=== PATIENT | male | born 1965 | race Two or more races ===

== ENCOUNTER → 2024-08-24 | Outpatient (CLI) | payer OTHER, SELFPAY ==
[2024-08-24 09:04] LABS: Alanine Aminotransferase 38 U/L (10-49); Albumin, Serum 4.8 gm/dL (3.5-5.0); Albumin/Globulin Ratio 1.8 (1.2-2.2); Alkaline Phosphatase 61 U/L (46-116); Anion Gap 6 (7-16); Aspartate Amino Transferase 27 U/L (0-34); BUN/Creatinine Ratio 19 Ratio (12-20); Bilirubin,Total 0.6 mg/dL (0.3-1.2); Blood Urea Nitrogen 15 mg/dL (9-23); Calcium 10.1 mg/dL (8.3-10.6); Calcium (Corrected) 10.1 mg/dL (8.5-10.1); Carbon Dioxide 29.5 mMol/L (20.0-31.0); Cardiac Risk Estimate 4.5 RATIO (4.0-6.7); Chloride 102 mMol/L (98-107); Cholesterol 188 mg/dL (132-200); Creatinine (Component) 0.8 mg/dL (0.6-1.3); Globulin 2.6 gm/dL (2.3-3.5); Glucose 116 mg/dL (74-106); HDL Cholesterol 42 mg/dL (40-60); LDL Cholesterol,Calculated 121 mg/dL (0-130); Osmolality,Calculated 275 (275-295); Potassium 4.1 mMol/L (3.4-5.1); Sodium 137 mMol/L (136-145); Total Protein 7.4 gm/dL (5.7-8.2); Triglycerides 125 mg/dL (30-150); Uric Acid 7.9 mg/dL (3.7-9.2); eGFR > 60 See Note
== END | disposition home or self-care (01) ==
PROVIDERS: PCP Family Medicine; Referring Provider Family Medicine; Visit Provider Family Medicine
DX: E78.2 Mixed hyperlipidemia (principal); I10 Essential (primary) hypertension; E79.0 Hyperuricemia without signs of inflammatory arthritis and tophaceous disease
CPT/HCPCS: 36415; 80053; 80061; 84550